=== PATIENT | male | born 1955 | race African-American/Black ===

== ENCOUNTER 2021-04-07 19:02 | Inpatient (IN) | payer MEDICARE, OTHER ==
[~2021-04-07] VITALS: Ht 172.7 cm; Wt 94.3 kg
[2021-04-07 20:56] LABS: *BILIRUBIN,URIN NEGATIVE (NEGATIVE); *BLOOD, URINE 2+ (NEGATIVE); *CLARITY,URINE CLEAR (CLEAR); *COLOR,URINE YELLOW (YELLOW); *KETONES,URINE NEGATIVE (NEGATIVE); LEUKOCYTE ESTERASE ,URINE NEGATIVE (NEGATIVE); NITRITE, URINE NEGATIVE (NEGATIVE); UGLUCOSE NEGATIVE (NEGATIVE)
[2021-04-07 21:14] LABS: *AMPHETAMINE, URINE NEGATIVE (NEGATIVE); *CANNABINOID, URINE NEGATIVE (NEGATIVE); *COCCAINE, URINE NEGATIVE (NEGATIVE); *OPIATE, URINE NEGATIVE (NEGATIVE); *PHENCYCLIDINE SCREEN,URINE NEGATIVE (NEGATIVE)
[2021-04-07 21:31] LABS: HEMATOCRIT 35.1 % (36.7-47.1); MEAN CORPUSCULAR HEMOGLOBIN 30.3 uug (23.8-33.4); MEAN CORPUSCULAR VOLUME 90.3 fL (73.0-96.2); PLATELET COUNT (AUTO) 304 K/uL (152-348)
[2021-04-07 21:34] LABS: CARBON DIOXIDE 27 mmol/L (21-32); CHLORIDE 108 mmol/L (98-107); CREATININE 0.8 mg/dL (0.6-1.3); GLUCOSE 91 mg/dL (74-106); UREA NITROGEN, BLOOD 8 mg/dL (7-18)
[2021-04-07 21:39] LABS: ETHANOL < 3 MG/DL (0-0)
[2021-04-07 21:40] LABS: ACETAMINOPHEN < 2.0 ug/mL (10-30); ALANINE AMINOTRANSFERASE 26 U/L (16-63); ALKALINE PHOSPHATASE 61 U/L (50-136); ASPARTATE AMINOTRANSFERASE 17 U/L (15-37); BILIRUBIN,DIRECT 0.1 mg/dL (0.0-0.2); BILIRUBIN,TOTAL 0.3 mg/dL (0.2-1.0); TOTAL PROTEIN, SERUM 7.3 g/dL (6.4-8.2)
[2021-04-07] MEDS ORDERED: POTASSIUM BICARBONATE/CIT AC 25 MEQ TABLET.EFF PO ONE (21:45)
[2021-04-07] MEDS ORDERED: POTASSIUM BICARBONATE/CIT AC 25 MEQ TABLET.EFF ONE (22:07)
[2021-04-07 22:28] LABS: BACTERIA,URINE NONE SEEN /HPF (NONE SEEN); RED BLOOD CELL CASTS,URINE 0-3 /LPF (NONE SEEN); SQUAMOUS EPITHELIAL CELL,UR NONE SEEN /HPF (NONE SEEN); WBC,URINE 0-3 /HPF (0-3)
--- NOTE | 2021-04-07 22:36 | NUR ---
Medically cleared by ERMD
--- NOTE | 2021-04-07 23:28 | NUR ---
Transfered to [facility] via [employer].
[2021-04-07] MEDS ORDERED: MAG HYDROX/AL HYDROX/SIMETH 30 ML LIQUID UDC PO PRN (23:30)
[2021-04-07] MEDS ORDERED: ZOLPIDEM 5 MG TABLET PO PRN (23:30)
[2021-04-07] MEDS ORDERED: MAGNESIUM HYDROXIDE 30 ML LIQUID UDC PO PRN (23:30)
--- NOTE | 2021-04-07 23:45 | NUR ---
GPS ADMISSION NOTE : Patient is a 66 year old male ,brought into the hospital by the police from a [facility]. The patient is on a 5150 for DTO. Per the hold, the patient has not been taking medications for over 1 month. The patient also was agitated and threatening to harm others. The staff and other residents were in fear. It was noted that the patient is a Schizophrenic. Upon face to face evaluation the patient appeared angry and agitated. The patient was not willing to sign any papers and was demanding food. Paranoia thoughts and delusions was also noted. The patient has wounds on the top of his feet and a consult was ordered. Very little medical history could be obtained from the patient and no home medications. VS stable ,patient refused to shower. The patient was provided with his Advisement and a Patients rights handbook. All belonging inventoried and locked up. This marine underwriter tried to engage in meaningful conversation but the patients words are garbled and nonsensical at times, plus the patient is easily angered. The unit rules were discussed, reinforcement needed. This marine underwriter will monitor the patient for behavior escalation, combativeness and safety stratiges are in place.
[2021-04-08] MEDS: LORAZEPAM 0.5 MG TABLET PO PRN ×4 (00:04→15:06)
[2021-04-08] MEDS: ACETAMINOPHEN 325 MG TABLET PO PRN (02:07)
[2021-04-08 02:50] VITALS: BP 121/78
--- NOTE | 2021-04-08 06:54 | NUR ---
Patient slept only 1 hour last night, despite receiving a PRN medication. Multiple times during the night, the patient was at the desk requesting food, requesting his cloths and becoming angry when he was not accommodated. The patient was willing to take medications when offered however , but the effect of the medications were minimal. The unit rules were explained to the patient multiple times throughout the night. Continuing to monitor this patient closely for behavior escalation and aggression. The patient is forgetful ,as well as ,delusional.
[2021-04-08 07:30] VITALS: BP 128/58
[2021-04-08] MEDS ORDERED: TRAZODONE 100 MG TABLET PO PRN (09:00)
--- NOTE | 2021-04-08 09:40 | NUR ---
Pt refused EKG, nurse notified.
--- NOTE | 2021-04-08 11:38 | NUR ---
Firearms Report: Orange Picking Supervisor completed and submitted a [employer] firearms report for 5150 grave disability certifications. A copy of report has been placed in patient chart.
[2021-04-08] MEDS: QUETIAPINE FUMARATE 25 MG TABLET PO SCH ×2 (13:11→20:39)
--- NOTE | 2021-04-08 13:19 | NUR ---
WOUND CARE CONSULT: PT SEEN FOR DISCOLORATION TO DORSAL FEET, EXTREMELY LONG TOENAILS AND LEFT 3RD TOE CALLUS, PRESENT ON ADMISSION. DPM CONSULT CALLED TO DR HAMPAPUR. MACIAS IN AGREEMENT WITH PLAN OF CARE.
[2021-04-08] MEDS ORDERED: OLANZAPINE 10 MG VIAL IM ONE (15:45)
[2021-04-08] MEDS ORDERED: LORAZEPAM 2 MG/1 ML VIAL IM ONE (15:45)
--- NOTE | 2021-04-08 16:05 | NUR ---
Pt is agitated, pacing the unit, yelling out and makes various demands. Pt demanded his Trazadone. Pt was explained that it is scheduled for night time. Pt calms down for short time, then comes out of his room and starts yelling at staff again. Pt was offered prn Ativan 0.5 mg as ordered PRN, but pt refused, saying it's not enough. Pt was posturing at staff. Pt went to his room, slammed the door and yelled at staff "I do not want to see your fu*michelle face!!!" Dr. Soto was contacted. One time IM order for Zyprexa 5 mg and Ativan 1 mg was obtained. IM was given with a presence of 2 security guards as patient was agitated and unpredictable. security had to be present on the unit as the patient remained agitated, yelling at staff.
[2021-04-08] MEDS: DIVALPROEX 250 MG TABLET.DR PO SCH (17:00)
[2021-04-08] MEDS: TAMSULOSIN HCL 0.4 MG CAP.SR.24H PO SCH (20:39)
[2021-04-08 21:19] VITALS: BP 124/54
[2021-04-09] MEDS: DIVALPROEX 250 MG TABLET.DR PO SCH ×2 (09:00→17:00)
[2021-04-09] MEDS: QUETIAPINE FUMARATE 25 MG TABLET PO SCH ×2 (09:00→20:06)
--- NOTE | 2021-04-09 09:03 | NUR ---
GPS: Pt at the dining room finished with breakfast, offering the morning medication depakote, seroquel and ativan as pt is yelling at the room. pt stated he will just take the seroquel and after the pt held on the medication, pt refused to take it and saying he will take it whenever he wants to. asked for security to get the medication and was able to retrieve the medication pt refused to take in front of the consumer loan underwriter. pt remained inside his room. will monitor pt
--- NOTE | 2021-04-09 09:11 | NUR ---
BENIGNO Board and Care Contact: BENIGNO contacted pt's board and care facility materials handling coordinator Rose Batres ([phone]) however unable to reach and left a voicemail requesting a call back.
--- NOTE | 2021-04-09 09:13 | NUR ---
BENIGNO FSP Contact: BENIGNO contacted pt's FSP Elise Nolasco ([phone]) however unable to reach and left a voicemail requesting a call back.
--- NOTE | 2021-04-09 09:33 | NUR ---
BENIGNO Initial Discharge Plan: [place] [address]; Rose Batres ([phone]) Owners of Facility. Patient will return to facility upon discharge. BENIGNO will continue to work with patient, family, and MD to ensure a safe and proper discharge plan.
--- NOTE | 2021-04-09 09:33 | NUR ---
Treatment Plan: Pt refused to sign treatment plan form due to aggressive behavior.
--- NOTE | 2021-04-09 10:05 | NUR ---
SW FSP Contact: SW received a call back from pt's FSP Court Clerk at [facility] Elise Madisonsain ([phone]) and discussed treatment and discharge plan. Elise provided this SW with the patient's correct facility information and address [address] [place] [address] Smith ([phone]). Elise also provided watch case polisher from JANET Puckett ([phone]) who is in charge of patient's placement coordination.
--- NOTE | 2021-04-09 10:16 | NUR ---
BENIGNO Board and Care Contact: BENIGNO spoke with [employer] catalog librarian Smith ([phone]) [address] [place] [address] who stated patient cannot return back to their facility.
--- NOTE | 2021-04-09 10:17 | NUR ---
BENIGNO Medical PathologistOccupational Health Nurse Manager: JANET Puckett ([phone]) who is in charge of patient's placement coordination. Lavern stated that she will be finding the patient a new board and care or placement facility. Lavern will inform this social media marketing analyst of new facility name, address, and phone number once it is arranged.
--- NOTE | 2021-04-09 12:05 | NUR ---
GPS: pt Thelma came for a visit and brought DPOA and ADVANCE DIRECTIVE. Addendum: 04/09/21 at 1653 by SAMUEL POLLOCK RN GPS: pls disregard. wrong pt notes
--- NOTE | 2021-04-09 16:54 | NUR ---
GPS: Dr Soto spoke with the pt, pt agreed that he will take medication from nurse. per Dr. Soto, if pt refuse to take medication, he will file for REISE petition.
--- NOTE | 2021-04-09 18:09 | NUR ---
GPS: pt not cooperative and refused the medication depakote. pacing the hallway and goes to dining room and takes the remote control and changes the channel to his wish. pt closes the door of his room and screams out loud.
[2021-04-09] MEDS: TAMSULOSIN HCL 0.4 MG CAP.SR.24H PO SCH (20:06)
--- NOTE | 2021-04-10 01:56 | NUR ---
GPS: Pt.still awake at this time. Occasionally would go out of his room and play with the non-working phone outside his door. Pt.needs frequent re-direction. Less aggressive but remains easily agitated when demands are not granted. Took his bedtime meds.last night and requested for Trazodone prn for sleep that was ineffective. Refused Ativan prn PO when offered at this time. Behavior monitoring continues. Safe environment provided.
[2021-04-10] MEDS: DIVALPROEX 250 MG TABLET.DR PO SCH (08:12)
[2021-04-10] MEDS: QUETIAPINE FUMARATE 25 MG TABLET PO SCH (08:12)
[2021-04-10] MEDS ORDERED: OLANZAPINE 10 MG VIAL IM ONE (08:30)
[2021-04-10] MEDS ORDERED: LORAZEPAM 2 MG/1 ML VIAL IM ONE (08:30)
[2021-04-10] MEDS: CLONAZEPAM 0.5 MG TABLET PO SCH ×4 (09:15→16:18)
[2021-04-10 16:11] VITALS: BP 140/77
[2021-04-10] MEDS: QUETIAPINE FUMARATE 100 MG TABLET PO SCH (16:19)
[2021-04-10] MEDS: THERAHONEY GEL 1.5 OZ TUBE TOP SCH (16:23)
[2021-04-10] MEDS: TAMSULOSIN HCL 0.4 MG CAP.SR.24H PO SCH (20:01)
[2021-04-10] MEDS: TRAZODONE 100 MG TABLET PO SCH (20:02)
[2021-04-10 20:15] VITALS: BP 142/66
[2021-04-11 07:30] VITALS: BP 119/73
[2021-04-11] MEDS: CLONAZEPAM 0.5 MG TABLET PO SCH ×4 (08:30→16:11)
[2021-04-11] MEDS: QUETIAPINE FUMARATE 100 MG TABLET PO SCH ×3 (08:30→16:10)
[2021-04-11] MEDS: THERAHONEY GEL 1.5 OZ TUBE TOP SCH (08:38)
[2021-04-11] MEDS ORDERED: LORAZEPAM 2 MG/1 ML VIAL IM ONE (09:45)
[2021-04-11] MEDS ORDERED: HALOPERIDOL LACTATE 5 MG/1 ML VIAL IM ONE (09:45)
[2021-04-11] MEDS ORDERED: diphenhydrAMINE 50 MG/1 ML VIAL IM ONE (09:45)
--- NOTE | 2021-04-11 09:45 | NUR ---
PT NOTED YELLING/SCREAMING PROFANITIES, THREATENING STAFF SAYING HE'S "GONNA FUCKING KILL YOU ALL, MOTHER FUCKERS." COMPLETELY OUT OF CONTROL, UNPREDICTABLE AND UNREDIRECTABLE. PARANOID AND DELUSIONAL, BELIEVES STAFF IS TRYING TO POISON HIM. PT POSTURING AT STAFF, GOT HIS FACE ONE INCH AWAY FROM CHILDREN'S ENTERTAINER'S FACE STATING HE'S GONNA "KICK YOUR MOTHER FUCKING ASS." DANIEL LO INITIATED. CALLED DR. CURTIS AND RECEIVED ORDER FOR 1:1 SITTER AND IM MEDICATIONS. NOTED AND WILL CARRY OUT.
--- NOTE | 2021-04-11 09:55 | NUR ---
PT REFUSED TO GO INTO ROOM TO RECEIVE IM MEDICATIONS. IT TOOK 5 STAFF MEMBERS TO TAKE PT TO HIS ROOM TO ADMINISTER IM MEDICATIONS. PT REMAINS EXCESSIVELY COMBATIVE AND PHYSICALLY AND VERBALLY AGGRESSIVE. TALKING TO SELF. RESPONDING TO INTERNAL STIMULI.
[2021-04-11 16:00] VITALS: BP 136/62
--- NOTE | 2021-04-11 18:31 | NUR ---
PT MORE CALM AT THIS TIME. IM MEDICATIONS APPEARS TO BE EFFECTIVE. PT CONTINUES TO BE EASILY IRRITABLE AND HOSTILE, BUT MORE REDIRECTABLE AT THIS TIME. 1:1 SITTER WITH PT AT ALL TIMES.
[2021-04-11] MEDS: TRAZODONE 100 MG TABLET PO SCH (21:00)
[2021-04-11] MEDS: TAMSULOSIN HCL 0.4 MG CAP.SR.24H PO SCH (21:00)
--- NOTE | 2021-04-12 01:00 | NUR ---
PATIENT WOKE UP YELLING AT NURSING STAFF, HE STATED, "WHY YOU COME TO MY ROOM, WHY YOU NEED TO LOOK AT ME". PATIENT NOTED AGITATED AND PSYCHOTIC. HOWEVER, HE WAS ABLE TO CALM DOWN AFTER MULTIPLE REDIRECTION AND REASSURANCE. HE WAS ABLE TO TAKE TRAZODONE AND FLOMAX QHS (HE PREVIOUSLY REFUSED THEM). PATIENT IS REASSURED FOR HIS SAFETY. WILL CONTINUE TO MONITOR.
--- NOTE | 2021-04-12 01:45 | NUR ---
PATIENT IS NOW IN HIS ROOM, HE IS NOTED CALM AT THIS TIME. WILL CONTINUE TO MONITOR.
[2021-04-12 07:30] VITALS: BP 127/64
[2021-04-12] MEDS: CLONAZEPAM 0.5 MG TABLET PO SCH (08:10)
[2021-04-12] MEDS: THERAHONEY GEL 1.5 OZ TUBE TOP SCH (08:10)
[2021-04-12] MEDS: QUETIAPINE FUMARATE 100 MG TABLET PO SCH ×4 (08:13→20:18)
--- NOTE | 2021-04-12 09:24 | NUR ---
PT REFUSED ALL PO MEDICATIONS. OFFERED MEDICATIONS AND STATED HE WILL ONLY TAKE MEDICATIONS FROM ME IF I WORE GLOVES. WOOD CASKET MAKER PUT ON LATEX GLOVES AND CAME BACK TO ADMINISTER THE MEDICATIONS, AND PT YELLED AT NURSE "FUCK OFF YOU BITCH, I AIN'T TAKING SHIT FROM YOU." CONTINUES TO BE EXCESSIVELY PSYCHOTIC, RESPONDS TO INTERNAL STIMULI, PARANOID/DELUSIONAL, DIFFICULT TO REDIRECT AT TIMES, VERY UNPREDICTABLE. 1:1 SITTER WITH PT AT ALL TIMES.
--- NOTE | 2021-04-12 16:15 | NUR ---
PT INITIALLY REFUSED PO MEDICATION, STATED DR. CURTIS HAD PROMISED HIM VALIUM THAT HE WANTED. MULTICUT LINE OPERATOR CALLED DR. CURTIS AND ORDERED ONE TIME DOSE OF VALIUM 5MG X1 IF PT AGREEABLE WITH TAKING HIS SCHEDULE SEROQUEL 100MG. PT EXCESSIVELY PARANOID/DELUSIONAL, STATING EVERYONE IS LYING TO HIM. AFTER EXTENSIVE PROMPTING, PT TOOK SEROQUEL THEN SAID "FUCK YOUR VALIUM" AND WALKED AWAY. 1:1 SITTER WITH PT AT ALL TIMES. PT REMAINS HIGHLY AGGRESSIVE, AGITATED, CONFUSED, AND EXCESSIVELY UNPREDICTABLE.
--- NOTE | 2021-04-12 18:24 | NUR ---
PT NOW AT NURSES STATION DEMANDING HE GETS VALIUM. PATTERN CUTTER WILL PUT IN ORDER PER DR. CURTIS'S ORDER FOR VALIUM 5MG PO X1.
[2021-04-12] MEDS ORDERED: DIAZEPAM 5 MG TABLET PO ONE (18:30)
--- NOTE | 2021-04-12 18:38 | NUR ---
pt compliant with Valium
[2021-04-12] MEDS: TRAZODONE 100 MG TABLET PO SCH (20:18)
[2021-04-12] MEDS: TAMSULOSIN HCL 0.4 MG CAP.SR.24H PO SCH (20:18)
[2021-04-13] MEDS: ACETAMINOPHEN 325 MG TABLET PO PRN ×2 (05:11→21:09)
--- NOTE | 2021-04-13 05:56 | NUR ---
Patient slept for about 5 hrs. Compliant with medication as long nurses has to wear gloves.Noted less aggressive but easily gets agitated however patient able to re direct. Refused to take shower this morning.Patient has 1:1 sitter.
[2021-04-13] MEDS: QUETIAPINE FUMARATE 100 MG TABLET PO SCH ×4 (08:15→20:09)
[2021-04-13] MEDS: THERAHONEY GEL 1.5 OZ TUBE TOP SCH (08:16)
[2021-04-13] MEDS ORDERED: HALOPERIDOL LACTATE 5 MG/1 ML VIAL IM ONE (10:30)
[2021-04-13] MEDS ORDERED: diphenhydrAMINE 50 MG/1 ML VIAL IM ONE (10:30)
--- NOTE | 2021-04-13 10:30 | NUR ---
patient is agitated and aggressive refused all Am medication,locked himself in the room not allow anyone to get in. hospital provided 1;1 sitter ,patient locked sitter outside of room.screamed out at sitter when she attempted to going to room. notified with ordered of IM of Haldol and Benadryl now,will continue to monitoring.
--- NOTE | 2021-04-13 11:44 | NUR ---
Elizabeth villa faxed to court and spoke with Jodi from court.
[2021-04-13] MEDS: DIVALPROEX 250 MG TABLET.DR PO SCH ×2 (11:45→20:09)
--- NOTE | 2021-04-13 12:16 | NUR ---
Patient's 5250 was upheld today in the probable cause hearing.
--- NOTE | 2021-04-13 12:55 | NUR ---
This caption writer spoke with Smith ([phone]), wind tunnel technician of patient's previous facility to ask about patient's home medications. Per Smith, patient has medications and she will fax the list to this unit.
[2021-04-13] MEDS: TRAZODONE 100 MG TABLET PO SCH (20:09)
[2021-04-13] MEDS: TAMSULOSIN HCL 0.4 MG CAP.SR.24H PO SCH (20:09)
[2021-04-14] MEDS: QUETIAPINE FUMARATE 100 MG TABLET PO SCH ×2 (08:45→22:07)
[2021-04-14] MEDS: DIVALPROEX 250 MG TABLET.DR PO SCH ×2 (08:45→22:07)
--- NOTE | 2021-04-14 08:46 | NUR ---
GPS: Pt refused seroquel an depakote. pt yelling and screaming at the hallway..
[2021-04-14] MEDS: THERAHONEY GEL 1.5 OZ TUBE TOP SCH (09:00)
[2021-04-14] MEDS: BENZTROPINE MESYLATE 1 MG TABLET PO SCH ×3 (10:45→17:00)
[2021-04-14] MEDS: HALOPERIDOL 5 MG TABLET PO SCH ×3 (10:45→17:00)
--- NOTE | 2021-04-14 10:47 | NUR ---
GPS: OFFERED THE HALDOL AND COGENTIN TABLET AND PT TOLERATED . EXPLAINED THE SIDE EFFECTS. WILL MONITOR PT.
[2021-04-14] MEDS: diphenhydrAMINE 50 MG/1 ML VIAL IM PRN ×2 (13:16→17:30)
[2021-04-14] MEDS: HALOPERIDOL LACTATE 5 MG/1 ML VIAL IM PRN ×2 (13:16→17:30)
--- NOTE | 2021-04-14 13:22 | NUR ---
GPS: PT REFUSED THE COGENTIN AND HALDOL ORAL MEDICATION. DR CURTIS ORDERED HALDOL AND BENDRYL IM INJECTION ADMINISTERED ON THE LEFT UPPER OUTER QUADRANT GLUTEAL MUSCLE. PT YELLING AT THE HALLWAY. WILL MONITOR PT.
--- NOTE | 2021-04-14 13:56 | NUR ---
Rianna Note and Discharge Planning Dr Soto's Elizabeth application was upheld today. [facility] lumber handler, Johan called to ask about patient's status on the unit. Advised him that patient was being very challenging and refusing medication and that no discharge plan was in placed for him.
--- NOTE | 2021-04-14 17:40 | NUR ---
GPS: OFFERED PT THE ORAL MEDICATION COGENTIN AND HALDOL AND PT REFUSED BOTH MEDICATIONS. EXPLAINED ABOUT THE REISE PETITION HE HAVE ON AND PT WILL HAVE INJECTION OF HALDOL AND BENADRYL IF REFUSED. PT REFUSED AND ADMINISTERED BENADRYL O.5 ML AND HALDOL IM 1ML ON RIGHT UPPER OUTER QUADRANT OF GLUTEAL MUSCLE.
[2021-04-14] MEDS: TRAZODONE 100 MG TABLET PO SCH (22:07)
[2021-04-14] MEDS: TAMSULOSIN HCL 0.4 MG CAP.SR.24H PO SCH (22:07)
[2021-04-15] MEDS: DIVALPROEX 250 MG TABLET.DR PO SCH ×2 (08:23→20:55)
[2021-04-15] MEDS: BENZTROPINE MESYLATE 1 MG TABLET PO SCH ×3 (08:23→17:14)
[2021-04-15] MEDS: HALOPERIDOL 5 MG TABLET PO SCH ×3 (08:23→17:14)
[2021-04-15] MEDS: THERAHONEY GEL 1.5 OZ TUBE TOP SCH (08:44)
[2021-04-15] MEDS ORDERED: OLAN2.5T3 PO (10:48)
[2021-04-15] MEDS ORDERED: QUET200T PO (10:48)
[2021-04-15 16:14] VITALS: BP 132/66
--- NOTE | 2021-04-15 18:29 | NUR ---
Patient is alert and oriented to name and place. Patient is guarded, withdrawn, and is paranoid and suspicious of staff, but he is cooperative and redirectable. Patient is compliant with medications, no adverse reaction noted. Patient denies suicidal and homicidal ideation. Patient denies hallucinations but appears internally preoccupied. Patient is able to ambulate independently, able to feed self and perform self care and ADL's. patient is encouraged to participate in the unit therapeutic milieu and groups. Patient educated about impulse control and how to communicate needs appropriately to staff.
[2021-04-15] MEDS: TRAZODONE 100 MG TABLET PO SCH (20:54)
[2021-04-15] MEDS: TAMSULOSIN HCL 0.4 MG CAP.SR.24H PO SCH (20:54)
[2021-04-15] MEDS: QUETIAPINE FUMARATE 100 MG TABLET PO SCH (20:55)
--- NOTE | 2021-04-15 22:32 | NUR ---
RECEIVED PATIENT IN THE DAY ROOM, HE IS WATCHING TV. HE IS NOTED A/O X 2. NOTED LESS IRRITABLE LESS ISOLATIVE LESS WITHDRAWN. MOOD IS LABILE, AFFECT IS INCONGRUENT. PATIENT DENIED SI/HI//AH. HE IS REASSURED FOR HIS SAFETY. SAFETY AND FALL PRECAUTION IN PLACE. HE REFUSED V/S. HOWEVER, HE WAS ABLE TO COMPLY WITH MEDICATION REGIMENT. PO FLUIDS AND SNACKS WERE GIVEN. WILL CONTINUE TO MONITOR.
[2021-04-16 08:03] VITALS: BP_SYST 133; BP_SYST 146; BP_DIAS 70; BP_DIAS 73
[2021-04-16] MEDS: THERAHONEY GEL 1.5 OZ TUBE TOP SCH (09:00)
[2021-04-16] MEDS: BENZTROPINE MESYLATE 1 MG TABLET PO SCH ×3 (09:02→17:05)
[2021-04-16] MEDS: DIVALPROEX 250 MG TABLET.DR PO SCH ×2 (09:02→20:14)
[2021-04-16] MEDS: HALOPERIDOL 5 MG TABLET PO SCH ×3 (09:02→17:05)
[2021-04-16] MEDS: TAMSULOSIN HCL 0.4 MG CAP.SR.24H PO SCH (11:16)
--- NOTE | 2021-04-16 11:17 | NUR ---
Gps/Embryology Teacher Flomax cap changed to q am instead of HS, patient's request Dmity VICE PRESIDENT PAYMENT was informed.
--- NOTE | 2021-04-16 14:11 | NUR ---
Gps/Carton Filling Machine Operator- Called [facility] (Manny/Peter ) to check what inhalers he's been getting prior coming to the Hosp. , Pharmacist claimed no such inhalers in his record noted, patient was informed.
--- NOTE | 2021-04-16 15:34 | NUR ---
Social Work Discharge Plan Update Spoke with Lavern ([phone]) who works for [facility] and is arranging alternative placement for patient. She says she will find an alternative placement for patient and will be sending forms to be completed by Dr Soto and manager social services.
[2021-04-16 16:26] VITALS: BP 155/58
[2021-04-16 20:09] VITALS: BP 115/56
[2021-04-16] MEDS: QUETIAPINE FUMARATE 100 MG TABLET PO SCH (20:14)
[2021-04-16] MEDS: TRAZODONE 100 MG TABLET PO SCH (20:14)
[2021-04-17] MEDS: ACETAMINOPHEN 325 MG TABLET PO PRN ×2 (06:53→11:15)
--- NOTE | 2021-04-17 06:58 | NUR ---
PATIENT SLEPT FOR APPROX. 4 HRS THROUGH THE NIGHT. HE CONTINUE COMPLIANT WITH MEDICATION REGIMENT. HE IS NOTED PLEASANT AND COOPERATIVE. WILL CONTINUE TO MONITOR. Addendum: 04/17/21 at 0703 by MOMO ROMANO RN PATIENT SLEPT FOR APPROX. 4 HRS THROUGH THE NIGHT.
[2021-04-17 08:00] VITALS: BP 116/59
[2021-04-17] MEDS: BENZTROPINE MESYLATE 1 MG TABLET PO SCH ×3 (08:21→17:29)
[2021-04-17] MEDS: HALOPERIDOL 5 MG TABLET PO SCH ×3 (08:21→17:29)
[2021-04-17] MEDS: DIVALPROEX 250 MG TABLET.DR PO SCH ×2 (08:21→20:37)
[2021-04-17] MEDS: TAMSULOSIN HCL 0.4 MG CAP.SR.24H PO SCH (08:21)
[2021-04-17] MEDS: THERAHONEY GEL 1.5 OZ TUBE TOP SCH (09:00)
[2021-04-17] MEDS: HALOPERIDOL DECANOATE 50 MG/1 ML AMPUL IM SCH (10:00)
[2021-04-17 16:00] VITALS: BP 114/83
--- NOTE | 2021-04-17 16:06 | NUR ---
Gps/Pediatric Nurse Practitioner- Re offered haldol decanoate IM, dustin said "NO" claimed he take my meds. all by mouth and will note take any injections per pt. Instructed the need to talk to his Psychiatrist
[2021-04-17 20:21] VITALS: BP 139/53
[2021-04-17] MEDS: QUETIAPINE FUMARATE 100 MG TABLET PO SCH (20:38)
[2021-04-17] MEDS: TRAZODONE 100 MG TABLET PO SCH (20:38)
--- NOTE | 2021-04-18 06:18 | NUR ---
Patient slept 4.15 hours only with no help. Patient took all due meds without any problem.
[2021-04-18] MEDS: ACETAMINOPHEN 325 MG TABLET PO PRN ×2 (06:43→17:44)
[2021-04-18] MEDS: BENZTROPINE MESYLATE 1 MG TABLET PO SCH ×3 (08:13→17:44)
[2021-04-18] MEDS: TAMSULOSIN HCL 0.4 MG CAP.SR.24H PO SCH ×2 (08:13→20:03)
[2021-04-18] MEDS: HALOPERIDOL 5 MG TABLET PO SCH ×3 (08:13→17:44)
[2021-04-18] MEDS: THERAHONEY GEL 1.5 OZ TUBE TOP SCH (08:13)
[2021-04-18] MEDS: DIVALPROEX 250 MG TABLET.DR PO SCH ×2 (08:13→20:03)
[2021-04-18] MEDS: HALOPERIDOL DECANOATE 50 MG/1 ML AMPUL IM SCH (18:33)
[2021-04-18] MEDS: TRAZODONE 100 MG TABLET PO SCH (20:03)
[2021-04-18] MEDS: QUETIAPINE FUMARATE 100 MG TABLET PO SCH (20:03)
[2021-04-18 20:08] VITALS: BP 123/55
[2021-04-19] MEDS: ACETAMINOPHEN 325 MG TABLET PO PRN (03:15)
--- NOTE | 2021-04-19 06:01 | NUR ---
Received Pt in the day room watching TV, A+Ox3. Pt required some prompting and education to take medications as he initially did not want to take them because he had received a long-acting injection and was under the impression he no longer had to take the meds by mouth. Pt was irritable and mildly agitated at still having to take the PO meds, but was redirectable. Pt was focused on snacks, and c/o headache later in the shift. Tylenol 650mg admonistered and effective. No combative behaviors. VS stable.
[2021-04-19 08:00] VITALS: BP 125/65
[2021-04-19] MEDS: HALOPERIDOL 5 MG TABLET PO SCH ×3 (08:11→16:54)
[2021-04-19] MEDS: THERAHONEY GEL 1.5 OZ TUBE TOP SCH (08:11)
[2021-04-19] MEDS: BENZTROPINE MESYLATE 1 MG TABLET PO SCH ×3 (08:11→16:54)
[2021-04-19] MEDS: DIVALPROEX 250 MG TABLET.DR PO SCH ×2 (08:11→20:29)
[2021-04-19 16:33] VITALS: BP 127/58
[2021-04-19 20:16] VITALS: BP 135/57
[2021-04-19] MEDS: TAMSULOSIN HCL 0.4 MG CAP.SR.24H PO SCH (20:29)
[2021-04-19] MEDS: TRAZODONE 100 MG TABLET PO SCH (20:29)
[2021-04-19] MEDS: QUETIAPINE FUMARATE 100 MG TABLET PO SCH (20:29)
[2021-04-20] MEDS: ACETAMINOPHEN 325 MG TABLET PO PRN ×2 (01:52→16:13)
--- NOTE | 2021-04-20 04:40 | NUR ---
This patient has been calm and cooperative during the shift so far. Staying in his room the whole time except for coming out a few times, to the station , to ask this technical writer and editor for food , Tylenol or milk. No difficulty with medication compliance noted. Maxillofacial Prosthetics Dentist observed that this patient does not interact with peers and is isolative. The patient remains paranoid and still refusing to shower since being admitted to this unit 11 days ago. This topic angers the patient easily. Maxillofacial Prosthetics Dentist will continue to monitor the patient for medication compliance and behavior escalation. VS have been stable.
--- NOTE | 2021-04-20 06:26 | NUR ---
Patient is up early and agreed to take a shower.
[2021-04-20 07:55] VITALS: BP 126/55
[2021-04-20] MEDS: THERAHONEY GEL 1.5 OZ TUBE TOP SCH (08:20)
[2021-04-20] MEDS: BENZTROPINE MESYLATE 1 MG TABLET PO SCH ×3 (08:20→16:14)
[2021-04-20] MEDS: HALOPERIDOL 5 MG TABLET PO SCH ×3 (08:20→16:14)
[2021-04-20] MEDS: DIVALPROEX 250 MG TABLET.DR PO SCH ×2 (08:20→20:27)
--- NOTE | 2021-04-20 14:14 | NUR ---
SW Facility Contact SW called and left voicemail for Carmina ([phone]), board and care owner operator, requesting call back to discuss possible placement options.
[2021-04-20 16:30] VITALS: BP 119/75
[2021-04-20 20:12] VITALS: BP 116/64
[2021-04-20] MEDS: QUETIAPINE FUMARATE 100 MG TABLET PO SCH (20:27)
[2021-04-20] MEDS: TAMSULOSIN HCL 0.4 MG CAP.SR.24H PO SCH (20:27)
[2021-04-20] MEDS: TRAZODONE 100 MG TABLET PO SCH (20:27)
[2021-04-21] MEDS: HALOPERIDOL 5 MG TABLET PO SCH ×3 (08:51→17:12)
[2021-04-21] MEDS: DIVALPROEX 250 MG TABLET.DR PO SCH ×2 (08:51→20:02)
[2021-04-21] MEDS: BENZTROPINE MESYLATE 1 MG TABLET PO SCH ×3 (08:51→17:12)
[2021-04-21] MEDS: THERAHONEY GEL 1.5 OZ TUBE TOP SCH (08:51)
[2021-04-21 16:03] LABS: BILIRUBIN,TOTAL 0.1 mg/dL (0.2-1.0); MAGNESIUM 2.2 mg/dL (1.8-2.4); PHOSPHOROUS 3.4 mg/dL (2.5-4.9)
[2021-04-21 16:39] LABS: HEMATOCRIT 39.8 % (36.7-47.1); MEAN CORPUSCULAR HEMOGLOBIN 30.5 uug (23.8-33.4); MEAN CORPUSCULAR VOLUME 90.8 fL (73.0-96.2); PLATELET COUNT (AUTO) 288 K/uL (152-348)
[2021-04-21] MEDS: TAMSULOSIN HCL 0.4 MG CAP.SR.24H PO SCH (20:02)
[2021-04-21] MEDS: QUETIAPINE FUMARATE 100 MG TABLET PO SCH (20:02)
[2021-04-21] MEDS: TRAZODONE 100 MG TABLET PO SCH (20:02)
[2021-04-22] MEDS: ACETAMINOPHEN 325 MG TABLET PO PRN ×2 (06:20→15:13)
--- NOTE | 2021-04-22 06:41 | NUR ---
GPS: Pt.slept 5.30 last night. No escalation of behavior noted. Re-directed prn. Compliant with his bedtime meds. Safe environment provided.
--- NOTE | 2021-04-22 06:54 | NUR ---
GPS: Pt.refused scheduled blood drawing this am despite explanation of risks vs benefits x3.
[2021-04-22 07:49] VITALS: BP 120/53
[2021-04-22] MEDS: DIVALPROEX 250 MG TABLET.DR PO SCH ×2 (08:45→20:33)
[2021-04-22] MEDS: HALOPERIDOL 5 MG TABLET PO SCH ×3 (08:46→17:04)
[2021-04-22] MEDS: BENZTROPINE MESYLATE 1 MG TABLET PO SCH ×3 (08:46→17:04)
[2021-04-22] MEDS: THERAHONEY GEL 1.5 OZ TUBE TOP SCH (08:48)
--- NOTE | 2021-04-22 15:14 | NUR ---
patient c/o gen:pain. Tylenol 650 mg po given.
--- NOTE | 2021-04-22 16:14 | NUR ---
patient stated i am feeling better now. prn effective for pain. continue plan of care.
[2021-04-22 17:21] VITALS: BP 134/74
[2021-04-22] MEDS: QUETIAPINE FUMARATE 100 MG TABLET PO SCH (20:33)
[2021-04-22] MEDS: TRAZODONE 100 MG TABLET PO SCH (20:33)
[2021-04-22] MEDS: TAMSULOSIN HCL 0.4 MG CAP.SR.24H PO SCH (20:33)
[2021-04-22 21:10] VITALS: BP 123/66
[2021-04-23 08:02] VITALS: BP 130/60
[2021-04-23] MEDS: BENZTROPINE MESYLATE 1 MG TABLET PO SCH ×3 (08:47→16:29)
[2021-04-23] MEDS: DIVALPROEX 250 MG TABLET.DR PO SCH ×2 (08:47→20:15)
[2021-04-23] MEDS: HALOPERIDOL 5 MG TABLET PO SCH ×3 (08:47→16:29)
[2021-04-23] MEDS: THERAHONEY GEL 1.5 OZ TUBE TOP SCH (09:16)
--- NOTE | 2021-04-23 13:21 | NUR ---
Social Work Discharge Plan Spoke with Erika [phone], medical case manager. They are still working on his placement. She says they should have a facility by noon tomorrow. We will have a backup plan for a locked facility and [facility] is researching this currently. Dr Soto was notified.
[2021-04-23 16:00] VITALS: BP 138/59
--- NOTE | 2021-04-23 18:35 | NUR ---
Remain calm and cooperative with meds and carte. no agitation noted. resting in bed comfortably.
[2021-04-23 20:00] VITALS: BP 103/73
[2021-04-23] MEDS: TAMSULOSIN HCL 0.4 MG CAP.SR.24H PO SCH (20:15)
[2021-04-23] MEDS: TRAZODONE 100 MG TABLET PO SCH (20:15)
[2021-04-23] MEDS: QUETIAPINE FUMARATE 100 MG TABLET PO SCH (20:15)
--- NOTE | 2021-04-24 06:44 | NUR ---
Pt awake, no complaints of pain, no change in LOC. One episode of yelling, agitation noted when offered to take a shower. Redirected. Able to interact appropriately after. Q15 min checks done per unit protocol.
--- NOTE | 2021-04-24 09:05 | NUR ---
Social Work Discharge Note [facility] [address] [place] [address] ([phone]). This placement was arranged by Erika Villa disease case manager rn ). Patient will see an outpatient psychiatrist, Dr Azar. His therapist is Johan Marte ) and patient will continue to see Johan. Patient is a client of the [facility] program who provide outpatient care and placement for him. Patient wants to leave the hospital. He lacks insight but this is his baseline. He is alert and oriented x3 and is denying any intent to harm himself or others. Patient needs to go placement via ambulance. Nursing will order an ambulance this morning. Patient will receive any needed medical treatment at his recuperative care program. Dr Soto was notified of discharge plan by this senior mortgage underwriter. Patient is agreeable to discharge plan although he wanted his own apartment. major account manager feels he is not functioning at a level where he could live alone currently.
[2021-04-24] MEDS: DIVALPROEX 250 MG TABLET.DR PO SCH (09:14)
[2021-04-24] MEDS: HALOPERIDOL 5 MG TABLET PO SCH ×2 (09:14→12:21)
[2021-04-24] MEDS: BENZTROPINE MESYLATE 1 MG TABLET PO SCH ×2 (09:14→12:21)
[2021-04-24] MEDS: THERAHONEY GEL 1.5 OZ TUBE TOP SCH (09:29)
[2021-04-24 11:09] VITALS: BP 135/67
[2021-04-24] MEDS: ACETAMINOPHEN 325 MG TABLET PO PRN (12:42)
--- NOTE | 2021-04-24 13:21 | NUR ---
Pt is being picked up by an ambulance to be transported to the next level of care, recuperative care. Pt is aware and willing to go. pt was provided with prescription medications from a psychiatrist and level vial curvature gauger. pt was able to sign paperwork. All belongings returned. No family to notify.
== END 2021-04-24 13:26 | disposition home or self-care (01) | DRG 885 ==
LOC: ER 19:05 → GPS 23:18
PROVIDERS: ADMIT Psychiatry & Neurology Psychiatry; ATTEND Nurse Practitioner Family
PROC: 0HBMXZZ Excision of Right Foot Skin, External Approach (ICD-10-PCS; principal; 2021-04-10)
DX: F25.0 Schizoaffective disorder, bipolar type (principal); E44.1 Mild protein-calorie malnutrition; E87.6 Hypokalemia; D64.9 Anemia, unspecified; E03.9 Hypothyroidism, unspecified; F17.210 Nicotine dependence, cigarettes, uncomplicated; F41.9 Anxiety disorder, unspecified; Z91.14 Patient's other noncompliance with medication regimen; Z71.6 Tobacco abuse counseling; E88.09 Other disorders of plasma-protein metabolism, not elsewhere classified; J45.909 Unspecified asthma, uncomplicated; Z68.31 Body mass index [BMI] 31.0-31.9, adult; L60.3 Nail dystrophy; L84 Corns and callosities; M79.672 Pain in left foot; M79.671 Pain in right foot; N40.0 Benign prostatic hyperplasia without lower urinary tract symptoms; L97.519 Non-pressure chronic ulcer of other part of right foot with unspecified severity; Z20.822 Contact with and (suspected) exposure to COVID-19; J44.9 Chronic obstructive pulmonary disease, unspecified
CPT/HCPCS: 36415; 70450; 71045; 80164; 83735; 84100; 84443; 85025; 93005; A4663; G0480; J1200; J1630; J1631; J2060; J2358; J3490